=== PATIENT | male | born 1960 | race American Indian/Alaskan Native ===

== ENCOUNTER 2020-08-20 00:16 | Emergency (ER) | payer SELFPAY ==
[2020-08-20] MEDS ORDERED: ACETAMINOPHEN 325 MG TAB PO ONE (02:16)
--- NOTE | 2020-08-20 03:10 | XRay Report ---
LEFT RIBS, PA CHEST RADIOGRAPH HISTORY: Left lateral rib pain COMPARISON: None. TECHNIQUE: 2 views of the left ribs were obtained. Single view of the chest also obtained. FINDINGS: Left Ribs: No displaced fracture. Chest: Cardiomediastinal silhouette: No significant abnormality. Lungs: The lungs are clear. No pleural effusions. No pneumothorax. Additional findings: None. IMPRESSION: 1. No significant abnormality. No displaced rib fracture identified. Signer Name: Gemini Bertrand MD Signed: 08/20/2020 3:06 AM Workstation Name: [id number]
--- NOTE | 2020-08-20 03:17 | Cat Scan Report ---
CT head/brain wo con INDICATION: Fall - Head injury. TECHNIQUE: Routine CT head without contrast. All CT scans at this location are performed using CT dos e reduction for ALARA by means of automated exposure control. COMPARISON: None. FINDINGS: BRAIN / INTRACRANIAL CONTENTS: No acute hemorrhage, mass effect, midline shift, or hydrocephalus. No appreciable acute large territorial or lacunar infarct. No chronic infarct or focal atrophy. Normal b rain volume and ventricular/sulcal size for age. ORBITS: No significant abnormality of visualized orbits. SINUSES / MASTOIDS: No significant abnormality of visualized sinuses and mastoid air cells. ADDITIONAL FINDINGS: Soft tissue swelling of the left frontal scalp. No underlying skull fracture carlota ntified. IMPRESSION: 1. Left frontal scalp soft tissue swelling. No underlying skull fracture or acute intracranial abnorm ality identified. Signer Name: Gemini Bertrand MD Signed: 08/20/2020 3:13 AM Workstation Name: [id number]
--- NOTE | 2020-08-20 03:22 | Cat Scan Report ---
CT CERVICAL SPINE WITHOUT CONTRAST INDICATION / CLINICAL INFORMATION: Fall - Head injury. TECHNIQUE: Axial CT images were obtained through the cervical spine. Sagittal and coronal reformatted images wer e produced. All CT scans at this location are performed using CT dose reduction for ALARA by means of automated exposure control. COMPARISON: None available. FINDINGS: VERTEBRAE: No significant abnormality. No acute displaced fracture identified. ALIGNMENT: No significant abnormality. DISC SPACES: No significant abnormality. FACET JOINTS: No significant abnormality. CRANIOCERVICAL JUNCTION:No significant abnormality. SPINAL CANAL: No significant abnormality. PARASPINAL SOFT TISSUES: No significant abnormality. ADDITIONAL FINDINGS: None. LUNG APICES: No significant abnormality of visualized lungs. IMPRESSION: 1. No significant abnormality. Signer Name: Gemini Bertrand MD Signed: 08/20/2020 3:18 AM Workstation Name: [id number]
--- NOTE | 2020-08-20 03:53 | Emergency Department Report ---
ED Fall HPI - General Chief Complaint: Fall Stated Complaint: FALL/INJURY TO HEAD Source: patient Mode of arrival: Ambulatory Limitations: Language Barrier - History of Present Illness Initial Comments: Patient is a 60-year-old white male with history of bilateral cataracts who presents to the ED with complaint of headache, frontal scalp swelling and left lateral rib pain after he tripped on a piece of furniture at work and fell down landing on the floor and in the process hitting his left lateral chest wall about 2 hours prior to arrival in the ED. Patient states that the pain has been persistent since the injury occurred. Patient denies loss of consciousness, nausea, vomiting, change in vision, back pain, chest pain, numbness and tingling or weakness of upper and lower extremities bilaterally, abdominal pain, seizures, syncope or palpitations. MD Complaint: fall, other (Left lateral rib pain; left-sided frontal scalp hematoma) -: Sudden, hour(s) (2) Fall From: standing When Fall Occurred: 1-3 hours [employer] Fall Witnessed: yes, by bystander Place Fall Occurred: work Loss of Consciousness: none Prolonged Down Time?: no Symptoms Prior to Fall: none Location: head, neck, chest (Left lateral ribs) Severity: moderate Severity scale (0 -10): 5 Quality: sharp, aching Context: tripped/slipped (Tripped on a piece of furniture) Associated Symptoms: denies, headache, neck pain, chest paint (Left lateral rib pain). denies: numbness, weakness, shortness of breath, abdominal pain, hematuria, unable to walk, lightheaded, vertigo, confusion - Related Data Previous Rx's Medication Instructions Recorded Last Taken Type Ibuprofen [Motrin] 600 mg PO Q8H PRN #30 tablet 08/20/20 Unknown Rx Allergies Allergy/AdvReac Type Severity Reaction Status Date / Time No Known Allergies Allergy Unverified 08/20/20 02:52 ED Review of Systems ROS: Stated complaint: FALL/INJURY TO HEAD Other details as noted in HPI Constitutional: denies: chills, fever Eyes: denies: eye pain, eye discharge, vision change ENT: denies: ear pain, throat pain Respiratory: denies: cough, shortness of breath, wheezing Cardiovascular: chest pain (Left lateral rib pain). denies: palpitations Endocrine: no symptoms reported Gastrointestinal: denies: abdominal pain, nausea, vomiting, diarrhea Genitourinary: denies: urgency, dysuria Musculoskeletal: denies: back pain, joint swelling, arthralgia Skin: denies: rash, lesions Neurological: headache. denies: weakness, paresthesias Psychiatric: denies: anxiety, depression Hematological/Lymphatic: denies: easy bleeding, easy bruising ED Past Medical Hx - Past Medical History Previous Medical History?: Yes Additional medical history: Cataracks, (visual impaired) - Surgical History Past Surgical History?: Yes Additional Surgical History: hernia - Social History Smoking Status: Never Smoker Substance Use Type: None - Medications Home Medications: Home Medications Medication Instructions Recorded Confirmed Last Taken Type Ibuprofen [Motrin] 600 mg PO Q8H PRN #30 tablet 08/20/20 Unknown Rx ED Physical Exam - General Limitations: No Limitations General appearance: alert, in no apparent distress - Head Head exam: Present: atraumatic, normocephalic, normal inspection - Eye Eye exam: Present: normal appearance, PERRL, EOMI Pupils: Present: normal accommodation - ENT ENT exam: Present: normal exam, normal orophraynx, mucous membranes moist, TM's normal bilaterally, normal external ear exam - Neck Neck exam: Present: normal inspection, tenderness (Palpable mild cervical paraspinal musculoskeletal tenderness), full ROM - Respiratory Respiratory exam: Present: normal lung sounds bilaterally, chest wall tenderness (Palpable reproducible left lateral rib and chest wall tenderness). Absent: respiratory distress, wheezes, rales, stridor, accessory muscle use, prolonged expiratory - Cardiovascular Cardiovascular Exam: Present: regular rate, normal rhythm, normal heart sounds. Absent: systolic murmur, diastolic murmur, rubs, gallop - GI/Abdominal GI/Abdominal exam: Present: soft, normal bowel sounds. Absent: tenderness, guarding, rebound, hyperactive bowel sounds, hypoactive bowel sounds - Extremities Exam Extremities exam: Present: normal inspection, full ROM, normal capillary refill - Back Exam Back exam: Present: normal inspection, full ROM. Absent: tenderness, CVA tenderness (R), CVA tenderness (L), muscle spasm, paraspinal tenderness, vertebral tenderness - Neurological Exam Neurological exam: Present: alert, oriented X3, CN II-XII intact, normal gait, reflexes normal - Psychiatric Psychiatric exam: Present: normal affect, normal mood - Skin Skin exam: Present: warm, dry, intact, normal color, other (Localized left sided frontal scalp hematoma). Absent: rash, cyanosis ED Course Vital Signs 08/20/20 00:32 Temperature 98.0 F Pulse Rate 66 Respiratory 16 Rate Blood Pressure 127/76 O2 Sat by Pulse 97 Oximetry ED Medical Decision Making - Radiology Data Radiology results: report reviewed, image reviewed Findings [facility] [address] [place] [address] XRay Report Signed Patient: RICK TAVAREZ MR#: [id number] : 1960 Acct:[id number] Age/Sex: 60 / M ADM Date: 08/20/20 Loc: ED Attending Dr: Ordering Physician: LISE BIRCH Date of Service: 08/20/20 Procedure(s): XR ribs UNI w PA chest 3+V LT Accession Number(s): [id number] cc: LISE BIRCH Fluoro Time In Minutes: LEFT RIBS, PA CHEST RADIOGRAPH HISTORY: Left lateral rib pain COMPARISON: None. TECHNIQUE: 2 views of the left ribs were obtained. Single view of the chest also obtained. FINDINGS: Left Ribs: No displaced fracture. Chest: Cardiomediastinal silhouette: No significant abnormality. Lungs: The lungs are clear. No pleural effusions. No pneumothorax. Additional findings: None. IMPRESSION: 1. No significant abnormality. No displaced rib fracture identified. Signer Name: Gemini Bertrand MD Signed: 08/20/2020 3:06 AM Workstation Name: [id number] Transcribed By: [facility] Dictated By: Gemini Bertrand MD Electronically Authenticated By: Gemini Bertrand MD Signed Date/Time: 08/20/20305 DD/ 1 TD/TT: Findings [facility] [address] [place] [address] Cat Scan Report Signed Patient: RICK TAVAREZ MR#: [id number] : 1960 Acct:[id number] Age/Sex: 60 / M ADM Date: 08/20/20 Loc: ED Attending Dr: Ordering Physician: LISE BIRCH Date of Service: 08/20/20 Procedure(s): CT head/brain wo con Accession Number(s): [id number] cc: LISE BIRCH CT head/brain wo con INDICATION: Fall - Head injury. TECHNIQUE: Routine CT head without contrast. All CT scans at this location are performed using CT dose reduction for ALARA by means of automated exposure control. COMPARISON: None. FINDINGS: BRAIN / INTRACRANIAL CONTENTS: No acute hemorrhage, mass effect, midline shift, or hydrocephalus. No appreciable acute large territorial or lacunar infarct. No chronic infarct or focal atrophy. Normal brain volume and ventricular/sulcal size for age. ORBITS: No significant abnormality of visualized orbits. SINUSES / MASTOIDS: No significant abnormality of visualized sinuses and mastoid air cells. ADDITIONAL FINDINGS: Soft tissue swelling of the left frontal scalp. No underlying skull fracture identified. IMPRESSION: 1. Left frontal scalp soft tissue swelling. No underlying skull fracture or acute intracranial abnormality identified. Signer Name: Gemini Bertrand MD Signed: 08/20/2020 3:13 AM Workstation Name: [id number] Transcribed By: [facility] Dictated By: Gemini Bertrand MD Electronically Authenticated By: Gemini Bertrand MD Signed Date/Time: 08/20/20312 DD/ 0308 TD/TT: Findings [facility] [address] [place] [address] Cat Scan Report Signed Patient: RICK TAVAREZ MR#: [id number] : 1960 Acct:[id number] Age/Sex: 60 / M ADM Date: 08/20/20 Loc: ED Attending Dr: Ordering Physician: LISE BIRCH Date of Service: 08/20/20 Procedure(s): CT cervical spine wo con Accession Number(s): [id number] cc: LISE BIRCH CT CERVICAL SPINE WITHOUT CONTRAST INDICATION / CLINICAL INFORMATION: Fall - Head injury. TECHNIQUE: Axial CT images were obtained through the cervical spine. Sagittal and coronal reformatted images were produced. All CT scans at this location are performed using CT dose reduction for ALARA by means of automated exposure control. COMPARISON: None available. FINDINGS: VERTEBRAE: No significant abnormality. No acute displaced fracture identified. ALIGNMENT: No significant abnormality. DISC SPACES: No significant abnormality. FACET JOINTS: No significant abnormality. CRANIOCERVICAL JUNCTION:No significant abnormality. SPINAL CANAL: No significant abnormality. PARASPINAL SOFT TISSUES: No significant abnormality. ADDITIONAL FINDINGS: None. LUNG APICES: No significant abnormality of visualized lungs. IMPRESSION: 1. No significant abnormality. Signer Name: Gemini Bertrand MD Signed: 08/20/2020 3:18 AM Workstation Name: [id number] Transcribed By: [facility] Dictated By: Gemini Berrtand MD Electronically Authenticated By: Gemini Bertrand MD Signed Date/Time: 08/20/20317 DD/ 2 TD/TT: - Medical Decision Making This is a 60-year-old white male with history of bilateral cataracts who presents to the ED with complaint of headache, frontal scalp swelling and left lateral rib pain after he tripped on a piece of furniture at work and fell down landing on the floor and in the process hitting his left lateral chest wall about 2 hours prior to arrival in the ED. Patient states that the pain has been persistent since the injury occurred. In the ED, patient is alert and oriented x3 and is not in distress. Patient was treated for pain in the ED and head CT scan without contrast showed no acute intracranial abnormalities or hemorrhage. The C-spine CT scan without contrast showed no acute cervical spine or disc fractures and subluxations. The left ribs and chest x-ray showed no acute rib fractures, pneumothorax, pleural effusion or any cardiopulmonary abnormalities or pneumonitis. On reevaluation, patient's pain is well controlled medications. Patient will discharge home on pain medication and advised to follow-up with his primary care physician in 5 days for reevaluation or return to the ED immediately if symptoms get worse. - Differential Diagnosis Skull fracture; scalp contusion; head injury; concussion; rib fracture Critical care attestation.: If time is entered above; I have spent that time in minutes in the direct care of this critically ill patient, excluding procedure time. ED Disposition Clinical Impression: Contusion of face, scalp and neck Qualifiers: Encounter type: initial encounter Qualified Code(s): S00.83XA - Contusion of other part of head, initial encounter; S00.03XA - Contusion of scalp, initial encounter; S10.93XA - Contusion of unspecified part of neck, initial encounter Contusion of rib on left side Qualifiers: Encounter type: initial encounter Qualified Code(s): S20.212A - Contusion of left front wall of thorax, initial encounter Disposition: TO HOME OR SELFCARE Is pt being admited?: No Does the pt Need Aspirin: No Condition: Stable Instructions: Contusion, [id number], Facial or Scalp Contusion, Blunt Chest Trauma Additional Instructions: The head CT scan without contrast showed no acute intracranial abnormalities or hemorrhage. The C-spine CT scan without contrast showed no acute cervical disc or spine fractures or subluxations. Left rib x-rays with chest showed no acute cardiopulmonary abnormalities, rib fractures, pneumothorax or pleural effusion. Therefore take medications with food, drink plenty of fluids and follow-up with your primary care physician in 3 to 5 days for reevaluation. Return to the ED immediately if symptoms get worse. Prescriptions: Ibuprofen [Motrin] 600 mg PO Q8H PRN #30 tablet PRN Reason: Pain Referrals: [facility] [Provider Group] - 3-5 Days Time of Disposition: 04:01 Print Language: ALBANIAN
[2020-08-20 05:21] VITALS: BP 124/75
== END 2020-08-20 04:36 | disposition home or self-care (01) ==
LOC: ED 00:16
DX: S20.212A Contusion of left front wall of thorax, initial encounter (principal); S10.93XA Contusion of unspecified part of neck, initial encounter; S00.03XA Contusion of scalp, initial encounter; S00.83XA Contusion of other part of head, initial encounter; Z79.899 Other long term (current) drug therapy; Z98.890 Other specified postprocedural states; W18.30XA Fall on same level, unspecified, initial encounter; Y93.89 Activity, other specified; Y92.89 Other specified places as the place of occurrence of the external cause; Y99.0 Civilian activity done for income or pay
CPT/HCPCS: 70450; 72125